=== PATIENT | male | born 1945 | race Caucasian/White ===

== ENCOUNTER 2020-10-31 13:53 | Outpatient (REF) | payer MEDICARE, SELFPAY ==
[2020-10-31 13:59] LABS: MANUAL DIFF FLAG NO
[2020-10-31 14:15] LABS: Basophils Absolute Auto 0.1 X10*3/uL (0.0-0.2); Basophils Percent Auto 0.7 % (0-2); Eosinophils Absolute Auto 0.5 X10*3/uL (0.0-0.4); Eosinophils Percent Auto 6.3 % (0-4); Hemoglobin 15.5 g/dl (14.0-18.0); Imm Gran Abs Auto 0.03 X10*3/uL (0.00-0.03); Imm Gran Pct Auto 0.4 % (0.0-0.4); Lymphocytes Absolute Auto 2.9 X10*3/uL (1.2-4.9); Mean Corpuscular HGB Conc 33.7 g/dl (31.0-36.0); Mean Corpuscular Hemoglobin 31.7 pg (27.0-33.0); Mean Corpuscular Volume 94.1 fL (80-98); Mean Platelet Volume 10.4 fL (9.4-12.4); Monocytes Absolute Auto 0.7 X10*3/uL (0.1-1.2); Monocytes Percent Auto 8.9 % (2-11); Neutrophils Absolute Auto 3.5 X10*3/uL (2.0-8.3); Neutrophils Percent Auto 45.7 % (45-73); Platelet Count 247 X10*3/uL (160-400); Red Blood Count 4.89 X10*6/uL (4.60-5.80); Red Cell Distribution Width 13.1 % (11.0-16.0); White Blood Count 7.6 X10*3/uL (4.8-10.8)
[2020-10-31 14:24] LABS: Glucose Urine UA NEG (NEG); Leukocyte Esterase Urine NEG (NEG); Nitrite Urine NEG (NEG); PH 7.5 (5.0-8.0); Urine Blood NEG (NEG); Urine Ketones NEG (NEG); Urine Protein NEG (NEG-TRACE)
[2020-10-31 14:32] LABS: Appearance Urine CLEAR; Color Urine YELLOW
[2020-10-31 14:40] LABS: Mucus Urine TRACE /LPF; RBC Urine 0 /HPF (0); WBC Urine 0 /HPF (0-4)
[2020-10-31 15:05] LABS: Alanine Aminotransferase 18 U/L (0-40); Albumin Level 4.4 g/dL (3.5-5.0); Alkaline Phosphatase 78 U/L (39-117); Anion Gap 12 (12-20); Aspartate Amino Transferase 16 U/L (5-37); Bilirubin Total 0.5 mg/dL (0.0-1.0); Blood Urea Nitrogen 17 mg/dL (9-16); Calcium 9.6 mg/dL (8.4-10.2); Carbon Dioxide 31 mmol/L (22-29); Chloride 100 mmol/L (96-108); Cholesterol 258 mg/dL; Estimated Glomerular Filt Rate 53; Glucose Random 112 mg/dL (60-115); HDL Cholesterol 40 mg/dL; LDL Cholesterol Calculated 143 mg/dl; Potassium 4.2 mmol/L (3.3-5.1); Sodium 139 mmol/L (135-145); Total Protein 7.4 g/dL (6.5-8.0); Triglycerides 378 mg/dL
[2020-10-31 15:20] LABS: Creatinine Urine 128.33 mg/dL; Microalbumin Urine < 5.0 mg/L
[2020-10-31 15:26] LABS: Prostate Specific Antigen 1.18 ng/mL (<0.05-4.0)
[2020-10-31 15:37] LABS: Reflex LDLD? No
== END 2020-10-31 13:54 | disposition home or self-care (01) ==
LOC: HO.LNP 13:53
PROVIDERS: Visit Provider Internal Medicine
DX: R73.03 Prediabetes (principal); I10 Essential (primary) hypertension; E78.00 Pure hypercholesterolemia, unspecified; N52.9 Male erectile dysfunction, unspecified
CPT/HCPCS: 80053; 80061; 81001; 82043; 84153; 85025

== ENCOUNTER 2021-01-23 10:20 | Outpatient (REF) | payer MEDICARE, SELFPAY ==
[2021-01-23 10:25] LABS: MANUAL DIFF FLAG NO
[2021-01-23 10:29] LABS: Basophils Absolute Auto 0.1 X10*3/uL (0.0-0.2); Basophils Percent Auto 0.9 % (0-2); Eosinophils Absolute Auto 0.5 X10*3/uL (0.0-0.4); Eosinophils Percent Auto 5.7 % (0-4); Hemoglobin 15.3 g/dl (14.0-18.0); Imm Gran Abs Auto 0.03 X10*3/uL (0.00-0.03); Imm Gran Pct Auto 0.4 % (0.0-0.4); Lymphocytes Absolute Auto 2.7 X10*3/uL (1.2-4.9); Lymphocytes Percent Auto 33.2 % (20-40); Mean Corpuscular HGB Conc 32.6 g/dl (31.0-36.0); Mean Corpuscular Hemoglobin 31.1 pg (27.0-33.0); Mean Corpuscular Volume 95.5 fL (80-98); Mean Platelet Volume 9.8 fL (9.4-12.4); Monocytes Absolute Auto 0.7 X10*3/uL (0.1-1.2); Monocytes Percent Auto 8.4 % (2-11); Neutrophils Absolute Auto 4.1 X10*3/uL (2.0-8.3); Neutrophils Percent Auto 51.4 % (45-73); Platelet Count 254 X10*3/uL (160-400); Red Blood Count 4.92 X10*6/uL (4.60-5.80); Red Cell Distribution Width 13.4 % (11.0-16.0); White Blood Count 8.1 X10*3/uL (4.8-10.8)
[2021-01-23 10:57] LABS: Glucose Urine UA NEG (NEG); Leukocyte Esterase Urine NEG (NEG); Nitrite Urine NEG (NEG); Specific Gravity - Urine 1.025 (1.005-1.025); Urine Blood NEG (NEG); Urine Ketones NEG (NEG); Urine Protein NEG (NEG-TRACE)
[2021-01-23 10:58] LABS: Appearance Urine CLEAR; Color Urine YELLOW
[2021-01-23 11:03] LABS: Alanine Aminotransferase 20 U/L (0-40); Albumin Level 4.2 g/dL (3.5-5.0); Alkaline Phosphatase 65 U/L (39-117); Anion Gap 13 (12-20); Aspartate Amino Transferase 16 U/L (5-37); Bilirubin Total 0.5 mg/dL (0.0-1.0); Blood Urea Nitrogen 25 mg/dL (9-16); Calcium 9.3 mg/dL (8.4-10.2); Carbon Dioxide 27 mmol/L (22-29); Chloride 105 mmol/L (96-108); Cholesterol 257 mg/dL; Estimated Glomerular Filt Rate 51; Glucose Fasting 107 mg/dL (60-99); HDL Cholesterol 40 mg/dL; LDL Cholesterol Calculated 156 mg/dl; Potassium 4.1 mmol/L (3.3-5.1); Sodium 141 mmol/L (135-145); Total Protein 7.1 g/dL (6.5-8.0); Triglycerides 305 mg/dL
[2021-01-23 11:07] LABS: Estimated Average Glucose 120 mg/dL; Hemoglobin A1c % 5.8 %
[2021-01-23 11:25] LABS: PSA,Total (Free>4and<10) 0.86 ng/mL (0.00-4.00)
[2021-01-23 12:09] LABS: Creatinine Urine 157.04 mg/dL; Microalbum/Creatinine Ratio Ur 3.1 ug/mg cr
== END 2021-01-23 10:21 | disposition home or self-care (01) ==
LOC: HO.LNP 10:20
PROVIDERS: Visit Provider Internal Medicine
DX: Z00.00 Encounter for general adult medical examination without abnormal findings (principal); R73.09 Other abnormal glucose; I10 Essential (primary) hypertension; E78.00 Pure hypercholesterolemia, unspecified
CPT/HCPCS: 80053; 80061; 81003; 82043; 83036; 84153; 85025

== ENCOUNTER 2022-01-26 12:07 | Outpatient (REF) | payer MEDICARE, SELFPAY ==
[2022-01-26 12:09] LABS: MANUAL DIFF FLAG NO
[2022-01-26 12:28] LABS: Basophils Absolute Auto 0.1 X10*3/uL (0.0-0.2); Basophils Percent Auto 0.7 % (0-2); Eosinophils Absolute Auto 0.3 X10*3/uL (0.0-0.4); Hematocrit 46.2 % (42.0-52.0); Hemoglobin 15.1 g/dl (14.0-18.0); Imm Gran Abs Auto 0.04 X10*3/uL (0.00-0.03); Imm Gran Pct Auto 0.5 % (0.0-0.4); Lymphocytes Absolute Auto 3.1 X10*3/uL (1.2-4.9); Mean Corpuscular HGB Conc 32.7 g/dl (31.0-36.0); Mean Corpuscular Hemoglobin 31.2 pg (27.0-33.0); Mean Corpuscular Volume 95.5 fL (80.0-98.0); Mean Platelet Volume 10.7 fL (9.4-12.4); Monocytes Absolute Auto 0.7 X10*3/uL (0.1-1.2); Monocytes Percent Auto 8.2 % (2-11); Neutrophils Absolute Auto 3.9 x10*3/uL (2.0-8.3); Neutrophils Percent Auto 48.6 % (45-73); Platelet Count 244 X10*3/uL (160-400); Red Blood Count 4.84 X10*6/uL (4.60-5.80); Red Cell Distribution Width 13.5 % (11.0-16.0)
[2022-01-26 12:35] LABS: Appearance Urine CLEAR; Color Urine YELLOW; Glucose Urine UA NEG (NEG); Leukocyte Esterase Urine NEG (NEG); Nitrite Urine NEG (NEG); PH 5.5 (5.0-8.0); Specific Gravity - Urine >= 1.030 (1.005-1.025); Urine Blood NEG (NEG); Urine Ketones NEG (NEG); Urine Protein NEG (NEG-TRACE)
[2022-01-26 12:52] LABS: RBC Urine 0-2 /HPF (0); WBC Urine 0 /HPF (0-4)
[2022-01-26 13:05] LABS: PSA,Total (Free>4and<10) 0.91 ng/mL (0.00-4.00)
[2022-01-26 13:35] LABS: Alanine Aminotransferase 16 U/L (0-40); Albumin Level 4.4 g/dL (3.5-5.0); Alkaline Phosphatase 65 U/L (39-117); Anion Gap 13 (12-20); Aspartate Amino Transferase 16 U/L (5-37); Bilirubin Total 0.5 mg/dL (0.0-1.0); Blood Urea Nitrogen 21 mg/dL (9-16); Calcium 9.2 mg/dL (8.4-10.2); Carbon Dioxide 27 mmol/L (22-29); Chloride 104 mmol/L (96-108); Cholesterol 244 mg/dL; Estimated Glomerular Filt Rate 52; Glucose Fasting 111 mg/dL (60-99); HDL Cholesterol 45 mg/dL; LDL Cholesterol Calculated 161 mg/dl; Potassium 4.5 mmol/L (3.3-5.1); Sodium 139 mmol/L (135-145); Triglycerides 192 mg/dL
[2022-01-26 13:46] LABS: Estimated Average Glucose 123 mg/dL; Hemoglobin A1c % 5.9 %
[2022-01-26 14:10] LABS: Creatinine Urine 137.48 mg/dL; Microalbum/Creatinine Ratio Ur 4.3 ug/mg cr
== END 2022-01-26 12:08 | disposition home or self-care (01) ==
LOC: HO.LNP 12:07
PROVIDERS: PCP Internal Medicine; Visit Provider Internal Medicine
DX: Z00.00 Encounter for general adult medical examination without abnormal findings (principal); R73.03 Prediabetes; I10 Essential (primary) hypertension; E78.00 Pure hypercholesterolemia, unspecified; Z12.5 Encounter for screening for malignant neoplasm of prostate
CPT/HCPCS: 80053; 80061; 81001; 82043; 83036; 84153; 85025

== ENCOUNTER 2023-01-31 11:19 | Outpatient (REF) | payer MEDICARE, SELFPAY | END 2023-01-31 11:20 | disposition home or self-care (01) | LOC: HO.LNP 11:19 | PROVIDERS: Visit Provider Internal Medicine | DX: Z00.00 Encounter for general adult medical examination without abnormal findings (principal); R73.09 Other abnormal glucose; I10 Essential (primary) hypertension; E78.00 Pure hypercholesterolemia, unspecified; Z12.5 Encounter for screening for malignant neoplasm of prostate | CPT/HCPCS: 80053; 80061; 81001; 82043; 83036; 84153; 85025 ==

== ENCOUNTER 2023-11-03 13:00 | Outpatient (AMB) | payer MEDICARE, SELFPAY ==
--- NOTE | 2023-11-03 12:59 | MHC.OFFWIV ---
Intake Vital Signs 11/03/23 13:00 Height 5 ft 9 in Weight 204 lb 4 oz BMI 30.2 BP 142/76 H Blood Pressure Location Lt brachial Position Sitting Pulse 92 Pulse Source Pulse Oximeter Temp 97.8 F Temp Source Oral Pulse Oximetry (%) 94 Oxygen Delivery Method Room Air Intake Visit Reasons: EP LFT side/arm pain (lobby) Intake Note: Pt presents to the office today for c/o left sided arm,shoulder,neck pain and states pain on the side where his ribs are. Pt states the pain started about 3 weeks ago. Pt states he thinks it may be due to him shoveling some dirt but isn't sure. Patient Tobacco Use Status: Former Tobacco user Allergies No Known Allergies Allergy (Mild, Unverified 11/03/23 12:59) NONE HPI EP LFT side/arm pain (lobby) HPI Details This is a 78 year old male patient who presents today with c/o left arm and neck strain. He states that this started about 3 weeks ago after doing some yard work and shoveling dirt. He reports soreness and a pulling sensation on the left side of his neck, in his left upper arm, and on the lateral aspect of his left pectoral area. He states certain movements exacerbate symptoms. He denies any arm or hand weakness or paresthesias. He denies any shooting or radiating pain from his neck. He has tried Tylenol without benefit. [facility] Medical History (Updated 11/03/23 @ 14:10 by SOPHIE Zamora) Strain of left deltoid muscle Strain of cervical portion of left trapezius muscle Social History Patient Tobacco Use Status: Former Tobacco user Review of Systems Const All systems reviewed & are unremarkable except as noted in HPI and below Physical Exam Vital Signs: Last Vital Signs Temp 97.8 F 11/03/23 13:00 Pulse 92 11/03/23 13:00 BP 142/76 H 11/03/23 13:00 Pulse Ox 94 11/03/23 13:00 Oxygen Delivery Method Room Air 11/03/23 13:00 BMI result Body Mass Index 30.2 Const General: cooperative, comfortable and no acute distress HEENT Head: Yes normal to inspection Neck Neck: Yes full ROM and Yes no lymphadenopathy Resp Effort & Inspection: normal respiratory effort Auscultation: clear to auscultation bilaterally Cardio Rate: regular rate Rhythm: regular rhythm Back/Spine/Pelvis Cervical Spine: normal cervical lordosis, cervical ROM normal and cervical muscular tenderness (left trap/rhomboid ) Skin General skin exam: no rashes or lesions noted Neuro General: moves all extremities and no focal motor deficits Motor exam (neuro): 5/5 motor strength present throughout (normal/equal hand strength b/l) Extrem Other: some mild tenderness to palpation over left deltoid, left pectoral, and left proximal bicep. Mildly limited left shoulder ROM with abduction. No cuff tenderness. Full arm ROM. Psych Appearance: grossly normal Mental Status: mental status grossly normal Speech and movement: Normal speech and movement present Assessment & Plan Assessment & Plan (1) Strain of cervical portion of left trapezius muscle: Code(s): S16.1XXA - Strain of muscle, fascia and tendon at neck level, initial encounter Plan: This appears to be muscular in nature. He has good shoulder ROM. Symptoms are not radicular in nature and so this does not seem to be neuropathic. We discussed trying some anti-inflammatory medication and perhaps a low dose of muscle relaxer in the evening. We reviewed indications, use, risks, possible s/e of medications. I offered him PT referral for evaluation/treatment, however he declined at this time. He has an appt. with PCP Dr. Laguna in a couple of weeks and is going to see how he feels at that time. In the meantime, I encouraged him to perform some gentle stretching and ROM exercises at home, which we reviewed in the office. We also discussed trying lidocaine patches, however he is not interested in this. He will f/u with PCP in two weeks, and can certainly return to the clinic in the meantime as needed. He agrees to plan. (2) Strain of left deltoid muscle: Code(s): S46.812A - Strain of other muscles, fascia and tendons at shoulder and upper arm level, left arm, initial encounter Qualifiers: Encounter type: initial encounter Qualified Code(s): S46.812A - Strain of other muscles, fascia and tendons at shoulder and upper arm level, left arm, initial encounter Plan: as above Medications: New cyclobenzaprine Take one tablet at bedtime as needed for muscle pain/spasms. 5 mg PO BEDTIME PRN 7 tabs 0RF muscle spasm S16.1XXA - Strain of muscle, fascia and tendon at neck level, initial encounter, S46.812A - Strain of other muscles, fascia and tendons at shoulder and upper arm level, left arm, initial encounter ibuprofen 600 mg PO Q8H PRN 90 tabs 0RF pain S16.1XXA - Strain of muscle, fascia and tendon at neck level, initial encounter, S46.812A - Strain of other muscles, fascia and tendons at shoulder and upper arm level, left arm, initial encounter Coding Level of Care Code Est Pt Level 4 (57124) Diagnoses Strain of cervical portion of left trapezius muscle S16.1XXA Strain of left deltoid muscle, initial encounter S46.812A Encounter type: initial encounter
[2023-11-03 13:00] VITALS: BP 142/76; PULSE 92; TEMP 36.6; O2SAT 94; BMI 30.2
== END 2023-11-03 13:40 | disposition home or self-care (01) ==
PROVIDERS: PCP Internal Medicine; Visit Provider Nurse Practitioner Family
DX: S16.1XXA Strain of muscle, fascia and tendon at neck level, initial encounter (principal); S46.812A Strain of other muscles, fascia and tendons at shoulder and upper arm level, left arm, initial encounter
CPT/HCPCS: 99214

== ENCOUNTER 2024-02-02 11:07 | Outpatient (REF) | payer MEDICARE, SELFPAY ==
[2024-02-02 11:10] LABS: MANUAL DIFF FLAG NO
[2024-02-02 11:40] LABS: Appearance Urine Clear; Color Urine Yellow; Glucose Urine UA Negative (Negative); Leukocyte Esterase Urine Negative (Negative); Nitrite Urine Negative (Negative); PH 7.5 (5.0-9.0); Specific Gravity - Urine 1.015 (1.005-1.025); Urine Blood Negative (Negative); Urine Ketones Negative (Negative); Urine Protein Negative (Neg-Trace)
[2024-02-02 11:45] LABS: Basophils Absolute Auto 0.1 X10*3/uL (0.0-0.2); Basophils Percent Auto 0.8 % (0-2); Eosinophils Absolute Auto 0.4 X10*3/uL (0.0-0.4); Eosinophils Percent Auto 5.5 % (0-4); Hematocrit 46.1 % (42.0-52.0); Hemoglobin 15.2 g/dl (14.0-18.0); Imm Gran Abs Auto 0.04 X10*3/uL (0.00-0.03); Imm Gran Pct Auto 0.5 % (0.0-0.4); Lymphocytes Absolute Auto 2.6 X10*3/uL (1.2-4.9); Lymphocytes Percent Auto 34.3 % (20-40); Mean Corpuscular Hemoglobin 31.5 pg (27.0-33.0); Mean Corpuscular Volume 95.6 fL (80.0-98.0); Mean Platelet Volume 10.4 fL (9.4-12.4); Monocytes Absolute Auto 0.6 X10*3/uL (0.1-1.2); Monocytes Percent Auto 7.2 % (2-11); Neutrophils Percent Auto 51.7 % (45-73); Platelet Count 247 X10*3/uL (160-400); Red Blood Count 4.82 X10*6/uL (4.60-5.80); Red Cell Distribution Width 13.2 % (11.0-16.0); White Blood Count 7.7 X10*3/uL (4.8-10.8)
[2024-02-02 11:51] LABS: Bacteria Urine None Seen (None Seen); Hyaline Casts Urine 0-2 /LPF (0-2); RBC Urine 0-2 /HPF (0-2); Squamous Epithelial Cell Urine 0-2 /HPF (0-2); WBC Urine 0-5 /HPF (0-5)
[2024-02-02 11:52] LABS: Estimated Average Glucose 123 mg/dL; Hemoglobin A1c % 5.9 % (<6.0)
[2024-02-02 11:54] LABS: Alanine Aminotransferase 17 U/L (0-40); Albumin Level 4.3 g/dL (3.5-5.0); Alkaline Phosphatase 61 U/L (39-117); Anion Gap 13 (12-20); Aspartate Amino Transferase 16 U/L (5-37); Bilirubin Total 0.5 mg/dL (0.0-1.0); Blood Urea Nitrogen 15 mg/dL (9-16); Calcium 9.6 mg/dL (8.4-10.2); Carbon Dioxide 27 mmol/L (22-29); Chloride 102 mmol/L (96-108); Cholesterol 247 mg/dL (<200); Estimated Glomerular Filt Rate 59; Glucose Fasting 106 mg/dL (60-99); HDL Cholesterol 40 mg/dL (>40); LDL Cholesterol Calculated 157 mg/dL (<100); Potassium 4.1 mmol/L (3.3-5.1); Sodium 138 mmol/L (135-145); Total Protein 7.2 g/dL (6.5-8.0); Triglycerides 250 mg/dL (<150)
[2024-02-02 12:12] LABS: PSA,Total (Free>4and<10) 2.35 ng/mL (0.00-4.00)
[2024-02-02 12:27] LABS: Creatinine Urine 115.11 mg/dL; Microalbumin Urine < 5.0 mg/L
== END 2024-02-02 11:08 | disposition home or self-care (01) ==
LOC: HO.LNP 11:07
PROVIDERS: Visit Provider Internal Medicine
DX: R73.09 Other abnormal glucose (principal); I10 Essential (primary) hypertension; E78.00 Pure hypercholesterolemia, unspecified; Z12.5 Encounter for screening for malignant neoplasm of prostate
CPT/HCPCS: 80053; 80061; 81001; 82043; 82570; 83036; 84153; 85025

== ENCOUNTER 2024-05-10 10:59 | Outpatient (REF) | payer MEDICARE, SELFPAY ==
[2024-05-10 11:49] LABS: PSA,Total (Free>4and<10) 1.03 ng/mL (0.00-4.00)
== END 2024-05-10 11:00 | disposition home or self-care (01) ==
LOC: HO.LNP 10:59
PROVIDERS: Visit Provider Internal Medicine
DX: Z12.5 Encounter for screening for malignant neoplasm of prostate (principal); R97.20 Elevated prostate specific antigen [PSA]
CPT/HCPCS: 84153

== ENCOUNTER 2025-02-04 10:41 | Outpatient (REF) | payer MEDICARE, SELFPAY ==
--- OUTSIDE RECORDS SUMMARY | 2024-08-21 07:00 | XMS_ITS ---
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 Role Phone Kun Laguna Primary Care Provider Allergies Allergen (clinical drug ingredient) Drug/Non Drug Allergy documented on EMR Reaction Allergy Type Onset Date Status simvastatin Simvastatin myalgia Drug Allergy Act jovan pravastatin Pravachol MYALGIA Drug Allergy Activ e atorvastatin Lipitor myalgia Drug Allergy Acti ve rosuvastatin Crestor myalgia Drug Allergy Acti ve Results Component Value Reference Range Notes Hemoglobin A1c Reviewed date:08/21/2024 10:56:12 AM Interpretation: Performing Lab: Notes/Report: Hemoglobin A1c 6.0 Glucose, finger stick Reviewed date:08/21/2024 10:49:38 AM Interpretation: Performing Lab: Notes/Report: Value 83 REASON FOR VISIT 6 month Medications Medication SIG (Take, Route, Frequency, Duration) Notes Start Date End Date Status Terbinafine HCl 250 MG 1 tablet Orally O nce a day for 90 days 02/09/2024 Not-Taking amLODIPine Besylate 5 MG TAKE 1 TABLET B Y MOUTH EVERY DAY for 90 Active Lisinopril-hydroCHLOROthi azide 10-12.5 MG TAKE 1 TABLET BY MOUTH EVERY DAY for 90 Active Problems Problem Type SNOMED Code ICD Code Onset Dates Problem Status W/U Status Risk Notes Problem [id number] Elevated PSA (R97.20) Active confirmed Vital Signs Blood pressure systolic 132 mm Hg 08/21/19 25 Blood pressure diastolic 70 mm Hg 025 Height 67.25 in 08/21/2024 Weight 202 lbs 08/21/2024 BMI 31.4 kg/m2 08/21/2024 Encounters Encounter Location Date Provider Diagnosis Kun Laguna MD [address] [place] [address] [place] [phone] 08/21/2024 Kun Laguna Prediabetes R73.09 and Elevated PSA R97.20 Assessments Encounter Date Diagnosis (ICD Code) Assessment Notes Treatment Notes Treatment Clinical Notes Section Notes 08/21/2024 Prediabetes (ICD-10 - R73.09) has good a1c, no need for medication at this time 08/21/2024 Elevated PSA (ICD-10 - R97.20) has returned to normal, will continue to monitor Plan Of Treatment Treatment Notes Assessment Notes Prediabetes has good a1c, no nee d for medication at this time Elevated PSA has returned to norm al, will continue to monitor Next Appt Details Provider Name:Kun Quintero ier, 02/11/2025 09:30:00 AM, [address] [place] [address], [address], [place], [place], [phone], Progress Notes * Juice TAYLOR ADOB:[birth year] (79 yo M)Acc No.[id number]:08/21/2024 Progress Notes Patient: Juice ADKINS Provider: Osman Laguna MD :1945 A ge:79 Y S ex:Male Date:08/21/2024 Address:[address] [place] [address] [place], [id number] Subjective: * Chief Complaints: * 6 month * HPI: S ymptom(s): pattient is a 79 yo male here for 6 month follow up visit of prostate/ psa went back to normal. had bronchitis month and half ago and lasted long time/ still feels like someting in throat that is gradually getting better. had skin tags on neck that all went away after taking terbinafine. * ROS: G eneral/Constitutional: Denies C hills. D enies F atigue. D enies F ever. D enies H eadache. E NT: Patient denies d ecreased sense of smell, any loss of taste, sore throat. D enies S ore throat. R espiratory: Denies C ough. D enies S hortness of breath at rest. D enies S hortness of breath with exertion. G astrointestinal: Denies D iarrhea. D enies N ausea. M usculoskeletal: Patient denies m uscle aches. P eripheral Vascular: Patient denies r ed and blue toes. * Medical History: * Surgical History: * Hospitalization/Major Diagno stic Procedure: * Medications: T akingamLODIPine Besylate 5 MG Tablet TAKE 1 TABLET BY MOUTH EVERY DAY Lisinopril-hydroCHLOROthiazide 10-12.5 MG Tablet TAKE 1 TABLET BY MOUTH EVERY DAY Taking amLODIPine Besylate 5 MG Tablet TAKE 1 TABLET BY MOUTH EVERY DAY Taking Lisinopril-hydroCHLOROthiazide 10-12.5 MG Tablet TAKE 1 TABLET BY MOUTH EVERY DAY Not-Taking/PRNTerbinafine HCl 250 MG Tablet 1 tablet Orally Once a day Medication List reviewed and reconciled with the patientNot-Taking/PRN Terbinafine HCl 250 MG Tablet 1 tablet Orally Once a day Medication List reviewed and reconciled with the patient * Allergies: S imvastatin: myalgiaPravachol: MYALGIALipitor: myalgiaCrestor: myalgiayes[Allergies Verified] Objective: * Vitals: H t: 67.25, Wt: 202, BMI:31.4, BP:132/70, Wt-k.63. * Examination: G eneral Examination: GENERAL APPEARANCE: a lert, well hydrated, in no distress.? HEAD: n ormocephalic. THROAT: n ot able to see into throat due to gag. SKIN: g ood turgor. HEART: n o murmurs, rubs, gallops, regular rate and rhythm.? LUNGS: n o wheezes, rales, rhonchi, good air movement, clear to auscultation bilaterally. Assessment: * Assessment: 1. E levated PSA - R97.20 (Primary) 2 . P rediabetes - R73.09 ? Plan: * Treatment: 2. P rediabetes L AB: Hemoglobin A1c (Collection Date & Time - 08/21/2024) Value Reference Range H emoglobin A1c 6.0 ?LAB: Glucose, finger stick (Collection Date & Time - 08/21/2024)* Value Reference Range V alue 83 Notes: has good a1c, no need for medication at this time?? * Procedure Codes: 8 2947 ASSAY, GLUCOSE, BLOOD QUANT, Modifiers: QW 57093 GLYCATED HEMOGLOBIN TEST, Modifiers: QW * * Sign off status: Completed true * Provider: Osman Laguna MD Date: 0 08/21/2024 Generated for Eladiai ng/Ben/eTransmitting on: 0 02/04/2025 11:36 AM EDT History and Physical Notes * HPI (History of Present Illness) Category Sub-Category Detail Notes Category Not es Symptom(s) pattient is a 7 0 yo male here for 6 month follow up visit of prostate/ psa went back to normal. had bronchitis month and half ago and lasted long time/ still feels like someting in throat that is gradually getting better. had skin tags on neck that all went away after taking terbinafine. Examination Category Sub-Category Detail Notes Category Not es General Examination GENERAL APPEARANCE: alert, w ell hydrated, in no distress HEAD: normocephalic THROAT: not able to see into throat due to gag HEART: no murmurs, rubs, ga llops, regular rate and rhythm LUNGS: no wheezes, rales, r honchi, good air movement, clear to auscultation bilaterally SKIN: good turgor
[2025-02-04 10:44] LABS: MANUAL DIFF FLAG NO
[2025-02-04 11:40] LABS: Appearance Urine Clear; Glucose Urine UA Negative (Negative); PH 5.5 (5.0-9.0); Specific Gravity - Urine 1.020 (1.005-1.025)
[2025-02-04 11:42] LABS: Hematocrit 44.6 % (42.0-52.0); Hemoglobin 15.1 g/dl (14.0-18.0); Imm Gran Abs Auto 0.04 X10*3/uL (0.00-0.03); Imm Gran Pct Auto 0.6 % (0.0-0.4); Lymphocytes Absolute Auto 2.4 X10*3/uL (1.2-4.9); Mean Corpuscular HGB Conc 33.9 g/dl (31.0-36.0); Mean Corpuscular Hemoglobin 31.5 pg (27.0-33.0); Mean Corpuscular Volume 93.1 fL (80.0-98.0); NRBC Abs Auto 0.000 X10*3/uL (0.0-0.012); NRBC Pct Auto 0.0 /100WBC (0.0-0.2); Platelet Count 226 X10*3/uL (160-400); Red Blood Count 4.79 X10*6/uL (4.60-5.80); White Blood Count 7.2 X10*3/uL (4.8-10.8)
[2025-02-04 11:59] LABS: Hemoglobin A1C 158.4956 umol/L; Total Hemoglobin (HGBA1C) 3869.9125 umol/L
[2025-02-04 12:12] LABS: Alanine Aminotransferase 20 U/L (0-40); Albumin Level 4.4 g/dL (3.5-5.0); Alkaline Phosphatase 55 U/L (39-117); Anion Gap 13 (12-20); Aspartate Amino Transferase 27 U/L (5-37); Blood Urea Nitrogen 22 mg/dL (9-16); Calcium 9.2 mg/dL (8.4-10.2); Carbon Dioxide 25 mmol/L (22-29); Chloride 106 mmol/L (96-108); Cholesterol 243 mg/dL (<200); Estimated Glomerular Filt Rate 55; HDL Cholesterol 40 mg/dL (>40); Potassium 4.3 mmol/L (3.3-5.1); Sodium 140 mmol/L (135-145); Total Protein 7.0 g/dL (6.5-8.0); Triglycerides 229 mg/dL (<150)
[2025-02-04 12:14] LABS: PSA,Total (Free>4and<10) 1.07 ng/mL (0.00-4.00)
== END 2025-02-04 10:42 | disposition home or self-care (01) ==
LOC: HO.LNP 10:41
PROVIDERS: Visit Provider Internal Medicine
DX: Z00.00 Encounter for general adult medical examination without abnormal findings (principal); I10 Essential (primary) hypertension; R97.20 Elevated prostate specific antigen [PSA]; R73.09 Other abnormal glucose
CPT/HCPCS: 80053; 80061; 81001; 82043; 82570; 83036; 84153; 85025